=== PATIENT | female | born 2005 | race Caucasian/White ===

== ENCOUNTER 2024-12-06 01:43 | Emergency (ER) | payer MEDICAID, SELFPAY ==
[2024-12-06 01:44] VITALS: BMI 21.0
[2024-12-06 02:04] VITALS: BP 125/83; PULSE 85; RESP 18; TEMP 36.6; O2SAT 98
--- NOTE | 2024-12-06 02:12 | PD.EDRME ---
Rapid Medical Screening Exam RME Arrival date/time: 12/06/24 01:43 Chief Complaint: Abdominal Pain Vital signs: Vital Signs Temperature 98 F 12/06/24 02:04 Pulse Rate 85 12/06/24 02:04 Respiratory Rate 18 12/06/24 02:04 Blood Pressure 125/83 12/06/24 02:04 Pulse Oximetry (%) 98 12/06/24 02:04 Oxygen Delivery Method Room Air 12/06/24 02:04 RME Narrative: Reports pelvic cramping. Positive tests at home x2, negative tests x3 in clinic.
[2024-12-06] MEDS: ACETAMINOPHEN 500 MG TABLET 1000 MG PO (02:19)
[2024-12-06 02:42] LABS: Collection Type, Urine Clean Catch
[2024-12-06 03:05] LABS: Bilirubin,Urine Negative (Negative); Blood,Urine Trace (Negative); Clarity,Urine Clear (Clear/Hazy); Color,Urine Lt-Yellow (Lt Yel-Yel); Glucose, Urine Negative (Negative); Ketones,Urine Negative (Negative); Leukocyte Esterase,Urine Negative (Negative); Nitrite,Urine Negative (Negative); Protein,Urine Negative (Neg - Trace); RBC,Urine < 1 /hpf (0-3); Specific Gravity,Urine 1.016 (1.001-1.035); Squamous Epithelial Cell,Urine 1 /hpf (0-5); Urobilinogen,Urine Negative mg/dL (0.0-1.0); WBC,Urine 1 /hpf (0-5)
[2024-12-06 03:06] LABS: HCG Qualitative,Urine Negative
--- NOTE | 2024-12-06 03:08 | PD.EDABDPN ---
ED Abdominal Pain RME/HPI General Chief Complaint: Abdominal Pain Stated complaint: ABD PAIN Time seen by provider: 12/06/24 03:08 Arrival date/time: 12/06/24 01:43 Source: patient, RN notes reviewed and old records reviewed Mode of arrival: ambulatory Limitations: no limitations RME / HPI RME / HPI narrative: 19yof presents to ED for 1-week history of intermittent pelvic cramping. Patient concerned she is , reports 2 positive home tests at home. She had 3 negative tests however at multiple clinics this past week. Patient reports minimal vaginal spotting 2 days ago, none today. No fever, n/v or dysuria reported. No medications or treatments since onset. Related Data Previous Rx's ?Medication ?Instructions ?Recorded diphenhydramine HCl 25 mg capsule 25 mg PO TID PRN HIVES #30 caps 01/25/20 (Benadryl) acetaminophen 325 mg capsule 650 mg (2 x 325 mg) PO Q6H PRN 01/30/20 pain #30 caps psyllium husk 3 gram/5.4 gram oral 1 tbsp PO QDAY #284 grams 11/24/20 powder magnesium citrate (Citrate of 150 ml PO QDAY PRN constipation 01/25/22 Magnesia oral) #296 mL naproxen 500 mg tablet 500 mg PO BID PRN pain #30 tabs 03/16/23 ondansetron 4 mg disintegrating 4 mg PO Q8H PRN nausea and 03/16/23 tablet vomiting #30 tabs ibuprofen 600 mg tablet 600 mg PO Q6H #30 tabs 07/08/23 ibuprofen 400 mg tablet 400 mg PO Q6H PRN pain #30 tabs 12/06/24 methocarbamol 500 mg tablet 500 mg PO Q8H PRN pain #20 tabs 12/06/24 Allergies Allergy/AdvReac Type Severity Reaction Status Date / Time No Known Allergies Allergy Verified 07/08/23 14:54 Review of Systems Review of Systems Systems Reviewed: All systems reviewed, normal except as documented Constitutional Constitutional: Denies chills and Denies fever(s) Gastrointestinal Gastrointestinal: Denies nausea and Denies vomiting Genitourinary Genitourinary: Reports abnormal vaginal bleeding, Denies dysuria and Reports pelvic pain Past Medical History Social History SMOKING STATUS: Current every day smoker SUBSTANCE USE: does not use ALCOHOL: Never ED Exam General Limitations: Present no limitations General appearance: Present alert and in no apparent distress Head Head exam: Present atraumatic and normocephalic Eye Eye exam: Present normal appearance, PERRL and EOMI ENT ENT exam: Present normal exam and mucous membranes moist Neck Neck exam: Present normal inspection and full ROM Chest Chest inspection: Present normal inspection and symmetric chest wall rise Respiratory Respiratory exam: Present normal lung sounds bilaterally; Absent respiratory distress Cardiovascular Cardiovascular exam: Present regular rate and normal rhythm Abdominal Exam Abdominal exam: Present soft; Absent distention, tenderness, guarding or rebound Extremities Exam Extremities exam: Present normal inspection and full ROM Back Exam Back exam: Present normal inspection and full ROM; Absent tenderness, CVA tenderness (R) or CVA tenderness (L) Neurological Exam Neurological exam: Present alert and oriented X3 Psychiatric Psychiatric exam: Present normal affect and normal mood Skin Skin exam: Present warm, dry, intact and normal color Course Quality Measures none Orders Category Date Time Status Beta HCG,Quantitative Stat Lab 12/06/24 02:22 Completed HCG Qualitative,Urine Stat Lab 12/06/24 02:22 Completed UA [Urinalysis] Stat Lab 12/06/24 02:22 Completed Acetaminophen Tab [Tylenol ES Tab] Med 12/06/24 02:12 Discontinued 1,000 mg PO X1 ONE HYDROcodone*/APAP 7.5/325 [[place] 7.5/325] Med 12/06/24 03:25 Discontinued 1 tab PO X1 ONE Vital Signs Vital signs: Vital Signs Temperature 98 F 12/06/24 02:04 Pulse Rate 85 12/06/24 02:04 Respiratory Rate 18 12/06/24 02:04 Blood Pressure 125/83 12/06/24 02:04 Pulse Oximetry (%) 98 12/06/24 02:04 Oxygen Delivery Method Room Air 12/06/24 02:04 Abdominal Pain MDM MDM Narrative MDM Narrative:: 19yof presents to ED for 1-week history of intermittent pelvic cramping. Patient concerned she is , reports 2 positive home tests at home. She had 3 negative tests however at multiple clinics this past week. Patient reports minimal vaginal spotting 2 days ago, none today. No fever, n/v or dysuria reported. No medications or treatments since onset. Patient is updated on negative tests. Encourage close follow-up with plate worker helper as needed. Stable for discharge, RTED precautions given. Patient data External records reviewed:: [facility] previous records (07/08/2023 ED visit for closed head injury) Clinical information provided by:: patient Social determinants that could affect healthcare access:: none Patient has the following chronic illnesses:: None How is presenting disease/condition affected by chronic disease/condition?: no chronic disease Evaluation data The following diagnostics were reviewed and interpreted by me:: lab results Lab and/or radiology exams considered but not ordered:: OB ultrasound: Negative hCG Interpretation Summary: negative upreg negative UA beta quant 0 Medications / Prescriptions Medications or Prescriptions considered but not ordered:: No antibiotics recommended at this time Medication administrations:: Medication Administration History Discontinued Medications Acetaminophen (Acetaminophen 500 Mg Tablet) 1,000 mg PO X1 ONE Stop: 12/06/24 02:13 Last Admin: 12/06/24 02:19 Dose: 1,000 mg Documented By: VERNON Hydrocodone Bitart/Acetaminophen (Hydrocodone/[place] 7.5/325 Tablet) 1 tab PO X1 ONE Stop: 12/06/24 03:26 Last Admin: 12/06/24 03:39 Dose: Not Given Documented By: VERNON Non-Admin Reason: Discontinued Above medications administered in ED Consultations Consultation(s) initiated? (list below): No Diagnosis Differential diagnosis abdominal pain: other (Other test, negative test, threatened miscarriage, ectopic , UTI) Most likely diagnosis given after review of the tests above:: Negative test, pelvic pain Admission Indicated Admission indicated?: not indicated Admission Request Was there a request for admission?: No Disposition Plan Disposition Plan: Discharge Discharge Attestation Discharge Attestation: The patient and all family members were given an opportunity to ask questions and understood the discharge instructions. Discharge instructions specifically effects, indications for sooner follow up or return to the emergency department, and the expected course of current diagnosis. Patient condition: Stable Discharge Plan Plan Patient Disposition: HOME (Self Care) Patient condition on transfer: Stable Prescriptions/Referrals Prescriptions/Med Rec: New ibuprofen 400 mg tablet 400 mg PO Q6H PRN (Reason: pain) Qty: 30 0RF methocarbamol 500 mg tablet 500 mg PO Q8H PRN (Reason: pain) Qty: 20 0RF No Action diphenhydramine HCl [Benadryl] 25 mg capsule 25 mg PO TID PRN (Reason: HIVES ) Qty: 30 0RF psyllium husk 3 gram/5.4 gram powder 1 tbsp PO QDAY Qty: 284 0RF Rx Instructions: mix into at least 8 oz of water or juice before administering magnesium citrate [Citrate of Magnesia] Solution 150 ml PO QDAY PRN (Reason: constipation) Qty: 296 0RF acetaminophen 325 mg capsule 650 mg PO Q6H PRN (Reason: pain) Qty: 30 0RF naproxen 500 mg tablet 500 mg PO BID PRN (Reason: pain) Qty: 30 0RF ondansetron 4 mg tablet,disintegrating 4 mg PO Q8H PRN (Reason: nausea and vomiting) Qty: 30 0RF ibuprofen 600 mg tablet 600 mg PO Q6H Qty: 30 0RF Referrals: Letha Mujica, ASSISTANT BOILER OPERATOR [Primary Care Provider] - In 1 week Problem List Clinical Impression: Negative test, Pelvic cramping Patient/Caregiver Discharge Instructions Education Materials: ED Pelvic Pain, Unknown Cause Print Language: Portuguese Stand Alone Forms: Lilliam Award Info., Patient Portal Info Letter PA/SOLE SKIVER Supervising Physician PA/SOLE SKIVER Supervising Physician: Ethan
[2024-12-06 03:29] LABS: Beta HCG,Quantitative < 1 mIU/mL (<5.0)
== END 2024-12-06 04:07 | disposition home or self-care (01) ==
PROVIDERS: Physician Assistant; Emergency Provider Emergency Medicine; PCP Nurse Practitioner Family
DX: R10.2 Pelvic and perineal pain (principal); Z32.02 Encounter for pregnancy test, result negative
CPT/HCPCS: 36415; 81001; 81025; 84702; 99283; A9270